=== PATIENT | male | born 1955 | race Caucasian/White ===

== ENCOUNTER 2024-07-26 13:14 | Emergency (ER) | payer OTHER ==
[~2024-07-26] VITALS: Wt 83.9 kg
[2024-07-26] MEDS ORDERED: Amiodarone Hydrochloride 150 MG/3 ML VIAL IV ONE (13:32)
[2024-07-27] MEDS ORDERED: EPINEPHrine Hydrochloride 1 MG/10 ML SYR IV ONE (14:41)
[2024-07-27] MEDS ORDERED: ATROPINE SULFATE 1 MG/10 ML SYR IV ONE (14:41)
== END 2024-07-26 16:20 ==
LOC: ED 13:14
DX: I46.9 Cardiac arrest, cause unspecified (principal)